=== PATIENT | male | born 1950 | race Two or more races ===

== ENCOUNTER 2018-03-26 06:10 | Inpatient (IN) | payer MEDICAID, MEDICARE ==
[~2018-03-26] VITALS: Ht 170.2 cm; Wt 115.0 kg
[~2018-03-26 06:10] MED LIST: AMLO5TAB13 PO; LOSA100T25 PO; PRAV20TA3 PO
[2018-03-26] MEDS ORDERED: CELECOXIB 100 MG CAP ONE (06:46)
[2018-03-26] MEDS ORDERED: ACETAMINOPHEN IV 100 ML IV ONE (06:47)
[2018-03-26] MEDS ORDERED: PREGABALIN CAPSULE 75 MG CAP ONE (06:47)
[2018-03-26] MEDS ORDERED: ceFAZolin 1GM/50ML 100 ML IV ONE (06:47)
[2018-03-26] MEDS ORDERED: TRANEXAMIC ACID 20 ML ONE (07:01)
[2018-03-26] MEDS ORDERED: BUPIVACAINE W/ EPINEPH 0.25% INJ 50ML MDV ONE (07:02)
[2018-03-26] MEDS ORDERED: VANCOMYCIN HCL 1000 MG VL ONE (07:02)
[2018-03-26] MEDS ORDERED: KETOROLAC TROMETH 30 MG/ML 1ML VIAL ONE (07:03)
[2018-03-26] MEDS ORDERED: MORPHINE SULF(PF) 0.5MG/ML 10ML VIAL ONE ×2 (07:05→07:32)
[2018-03-26] MEDS ORDERED: PHENYLEPHRINE HCL 10 MG/ML VL IV ONE (07:18)
[2018-03-26] MEDS ORDERED: TETRACAINE 1% INJ 2 ML VIAL IJ ONE (07:23)
[2018-03-26] MEDS ORDERED: fentaNYL CITRATE 100 MCG/2 ML VL ONE (07:32)
[2018-03-26] MEDS ORDERED: MIDAZOLAM HCL 1MG/1ML-2 ML VIAL ONE ×3 (07:32→10:55)
[2018-03-26] MEDS ORDERED: MIDAZOLAM HCL 1MG/1ML-2 ML VIAL IV PRN (08:30)
[2018-03-26] MEDS ORDERED: KETOROLAC TROMETH 30 MG/ML 1ML VIAL IV ONE (08:30)
[2018-03-26] MEDS ORDERED: NALBUPHINE HCL 10 MG/1ml INJECTION SUBCUT ONE (08:30)
[2018-03-26] MEDS ORDERED: diphenhdrAMINE HCL 50 MG/1 ML VL IV PRN (08:30)
[2018-03-26] MEDS ORDERED: NALOXONE HCL 0.4 MG/ML VIAL IV PRN (08:30)
[2018-03-26] MEDS ORDERED: DEXAMETHASONE SOD PHOS 10MG/1ML VIAL INJ IV PRN (08:30)
[2018-03-26] MEDS ORDERED: HYDROmorphone HCL 2 MG/ML VL IV PRN ×2 (08:30→10:45)
[2018-03-26] MEDS ORDERED: hydrALAZINE HCL 20 MG/ML VL IV PRN (08:30)
[2018-03-26] MEDS ORDERED: MORPHINE SULFATE 4 MG/ML SYR/VIAL IV PRN (08:30)
[2018-03-26] MEDS ORDERED: ONDANSETRON HCL 4 MG/2 ML VIAL IV ONE (08:30)
[2018-03-26] MEDS ORDERED: LABETALOL HCL 5 MG/ML 4ML SYRINGE IV PRN (08:30)
[2018-03-26] MEDS ORDERED: ePHEDrine SULFATE 50 MG/ML AMP IV PRN (08:30)
[2018-03-26] MEDS ORDERED: DEXAMETHASONE SOD PHOS 10MG/1ML VIAL INJ ONE (08:31)
[2018-03-26] MEDS ORDERED: PROPOFOL 10 MG/ML 20 ML IV ONE (08:31)
[2018-03-26] MEDS ORDERED: MORPHINE SULFATE 4 MG/ML SYR/VIAL IV ONE (10:00)
[2018-03-26] MEDS: LACTATED RINGER'S 1,000 ML IV SCH (10:29)
[2018-03-26] MEDS ORDERED: MORPHINE SULF INJ 2 MG/ML SYRINGE 1ML IV PRN (10:45)
[2018-03-26] MEDS ORDERED: ONDANSETRON HCL 4 MG/2 ML VIAL IV PRN (10:45)
[2018-03-26] MEDS ORDERED: NITROGLYCERIN 0.4 MG SL TAB SL PRN (10:45)
[2018-03-26] MEDS ORDERED: OXYCODONE W/ ACETAMINOPHEN 5/325MG TABLET PO PRN ×2 (10:45)
[2018-03-26] MEDS ORDERED: ACETAMINOPHEN 325 MG TAB PO PRN (10:45)
[2018-03-26] MEDS ORDERED: BISACODYL 5 MG EC TAB PO PRN (10:45)
[2018-03-26] MEDS ORDERED: traMADol HCL 50 MG TAB PO PRN (10:45)
[2018-03-26] MEDS ORDERED: ROPIVACAINE 0.5% (5MG/ML) 20ML AMPULE IJ ONE (10:56)
[2018-03-26] MEDS ORDERED: LIDOCAINE W/ EPINEPHRINE 2% INJ 20ML VIAL ONE (10:56)
[2018-03-26] MEDS ORDERED: ceFAZolin 1GM 2 GM in D5W 5% 100 ML IV SCH (15:00)
[2018-03-26 15:05] VITALS: BP 125/72
[2018-03-26] MEDS ORDERED: PANTOPRAZOLE 40 MG/10 ML VIAL IV ONE (17:02)
[2018-03-26 17:03] VITALS: BP 125/72
[2018-03-26] MEDS: ceFAZolin 1GM 2 GM in D5W 5% 100 ML IV SCH (18:11)
[2018-03-26] MEDS: oxyCODONE ER 10 MG TAB PO SCH (21:24)
[2018-03-26] MEDS: DOCUSATE SOD 100 MG CAP PO SCH (21:24)
[2018-03-26 22:00] VITALS: BP 125/79
[2018-03-27] MEDS: ceFAZolin 1GM 2 GM in D5W 5% 100 ML IV SCH ×2 (01:32→09:29)
[2018-03-27] MEDS: LACTATED RINGER'S 1,000 ML IV SCH ×3 (02:28→17:07)
[2018-03-27 05:00] VITALS: BP 119/79
[2018-03-27 09:00] VITALS: BP 139/71
[2018-03-27] MEDS: oxyCODONE ER 10 MG TAB PO SCH ×2 (09:30→21:58)
[2018-03-27] MEDS: LOSARTAN POTASSIUM 50 MG TAB PO SCH (09:30)
[2018-03-27] MEDS: amLODIPine BESYLATE 5 MG TAB PO SCH (09:31)
[2018-03-27] MEDS: DOCUSATE SOD 100 MG CAP PO SCH ×2 (09:31→21:54)
[2018-03-27] MEDS: ENOXAPARIN SOD 40 MG/0.4 ML SYRINGE SC SCH (09:31)
[2018-03-27] MEDS ORDERED: PATIENTS OWN MEDICATION (Losartan Potassium & Hydrochlo (Hyzaar) 1 TAB) PO SCH (10:00)
[2018-03-27] MEDS ORDERED: HCTZ 25 MG TAB PO SCH (10:00)
[2018-03-27 13:00] VITALS: BP 134/77
[2018-03-27] MEDS ORDERED: hydrALAZINE HCL 20 MG/ML VL IV PRN (16:00)
[2018-03-27 16:29] LABS: Alanine Aminotransferase 23 U/L (16-61); Albumin 3.2 g/dL (3.4-5.0); Alkaline Phosphatase 61 U/L (45-117); Aspartate Aminotransferase 17 U/L (15-37); Bilirubin, Direct < 0.1 mg/dL (0-0.2); Bilirubin, Total 0.4 mg/dL (0.2-1.0); Total Protein 6.7 g/dL (6.4-8.2)
[2018-03-27 17:00] VITALS: BP 140/74
[2018-03-27] MEDS: KETOROLAC TROMETH 30 MG/ML 1ML VIAL IV PRN (17:07)
[2018-03-27] MEDS: PRAVASTATIN SODIUM 20 MG TAB PO SCH (21:58)
[2018-03-27 22:00] VITALS: BP 147/82
[2018-03-28] MEDS: LACTATED RINGER'S 1,000 ML IV SCH ×3 (02:34→22:18)
[2018-03-28 05:00] VITALS: BP 144/76
[2018-03-28 06:18] LABS: Basophils # (auto) 0 uL; Basophils % (auto) 0.1 % (0.0-2.0); Eosinophils # (auto) 0 uL; Eosinophils % (auto) 0.2 % (0.0-7.0); Hematocrit 37.5 % (41.0-53.0); Hemoglobin 12.9 g/dL (13.5-17.5); Lymphocytes # (auto) 2.3 uL; Lymphocytes % (auto) 22.5 % (10.0-50.0); Mean Corpuscular Hgb Conc. 34.5 g/dL (32.0-36.0); Mean Corpuscular Volume 89.7 fL (80.0-100.0); Monocytes # (auto) 1.1 uL; Monocytes % (auto) 10.4 % (0.0-12.0); Neutrophils # (auto) 6.8 uL; Neutrophils % (auto) 66.8 % (37.0-80.0); Nucleated Red Blood Cells % 0.1 %; Platelet Count (auto) 175 10^3/uL (140-450); Red Blood Cells 4.18 10^6/uL (4.5-5.90); Red Cell Distribution Width 14.1 % (11.8-14.3); White Blood Cell 10.2 10^3/uL (4.4-10.8)
[2018-03-28 06:28] LABS: INR 0.93 (0.9-1.15); Partial Thromboplastin Time 25.3 sec (23.78-33.04)
[2018-03-28 06:29] LABS: Magnesium 2.2 mg/dL (1.6-2.6); Potassium 3.6 mmol/L (3.5-5.1)
[2018-03-28 06:31] LABS: BUN/Creatinine Ratio 27.2
[2018-03-28 08:00] VITALS: BP 153/78
[2018-03-28 08:34] VITALS: BP 153/78
[2018-03-28] MEDS: LOSARTAN POTASSIUM 50 MG TAB PO SCH (09:53)
[2018-03-28] MEDS: DOCUSATE SOD 100 MG CAP PO SCH ×2 (09:53→21:24)
[2018-03-28] MEDS: oxyCODONE ER 10 MG TAB PO SCH ×2 (09:54→21:25)
[2018-03-28] MEDS: amLODIPine BESYLATE 5 MG TAB PO SCH (09:54)
[2018-03-28] MEDS: ENOXAPARIN SOD 40 MG/0.4 ML SYRINGE SC SCH (09:55)
[2018-03-28] MEDS: KETOROLAC TROMETH 30 MG/ML 1ML VIAL IV PRN (12:27)
[2018-03-28 12:59] VITALS: BP 153/81
[2018-03-28 15:17] LABS: Basophils # (auto) 0 uL; Basophils % (auto) 0.3 % (0.0-2.0); Eosinophils # (auto) 0.1 uL; Eosinophils % (auto) 0.7 % (0.0-7.0); Hematocrit 38.7 % (41.0-53.0); Hemoglobin 13.1 g/dL (13.5-17.5); Lymphocytes # (auto) 2.3 uL; Mean Corpuscular Hemoglobin 30.4 pg (28.0-32.0); Mean Corpuscular Hgb Conc. 33.7 g/dL (32.0-36.0); Mean Corpuscular Volume 90.2 fL (80.0-100.0); Monocytes # (auto) 1.1 uL; Monocytes % (auto) 11.4 % (0.0-12.0); Neutrophils % (auto) 63.6 % (37.0-80.0); Nucleated Red Blood Cells % 0.1 %; Platelet Count (auto) 185 10^3/uL (140-450); Red Blood Cells 4.29 10^6/uL (4.5-5.90); White Blood Cell 9.5 10^3/uL (4.4-10.8)
[2018-03-28 17:00] VITALS: BP 158/85
[2018-03-28] MEDS: PRAVASTATIN SODIUM 20 MG TAB PO SCH (21:24)
[2018-03-28 22:00] VITALS: BP 149/88
[2018-03-29 05:00] VITALS: BP 144/85
[2018-03-29 07:35] LABS: Basophils # (auto) 0 uL; Basophils % (auto) 0.3 % (0.0-2.0); Eosinophils # (auto) 0.1 uL; Hematocrit 38.2 % (41.0-53.0); Hemoglobin 13.2 g/dL (13.5-17.5); Lymphocytes # (auto) 2.5 uL; Lymphocytes % (auto) 28.4 % (10.0-50.0); Mean Corpuscular Hemoglobin 31.1 pg (28.0-32.0); Mean Corpuscular Hgb Conc. 34.7 g/dL (32.0-36.0); Mean Corpuscular Volume 89.8 fL (80.0-100.0); Monocytes # (auto) 1.1 uL; Monocytes % (auto) 12.9 % (0.0-12.0); Neutrophils % (auto) 57.4 % (37.0-80.0); Nucleated Red Blood Cells % 0.1 %; Platelet Count (auto) 188 10^3/uL (140-450); Red Blood Cells 4.26 10^6/uL (4.5-5.90); Red Cell Distribution Width 14.3 % (11.8-14.3); White Blood Cell 8.7 10^3/uL (4.4-10.8)
[2018-03-29 07:46] LABS: BUN/Creatinine Ratio 19.8; Calcium 8.1 mg/dL (8.5-10.1); Potassium 3.5 mmol/L (3.5-5.1)
[2018-03-29 08:15] VITALS: BP 143/74
[2018-03-29] MEDS: LACTATED RINGER'S 1,000 ML IV SCH (08:29)
[2018-03-29 09:00] VITALS: BP 143/74
[2018-03-29] MEDS: LOSARTAN POTASSIUM 50 MG TAB PO SCH (10:19)
[2018-03-29] MEDS: oxyCODONE ER 10 MG TAB PO SCH (10:20)
[2018-03-29] MEDS: amLODIPine BESYLATE 5 MG TAB PO SCH (10:20)
[2018-03-29] MEDS: DOCUSATE SOD 100 MG CAP PO SCH (10:21)
[2018-03-29] MEDS: ENOXAPARIN SOD 40 MG/0.4 ML SYRINGE SC SCH (10:21)
[2018-03-29 11:39] VITALS: BP 161/67
[2018-03-29 12:33] VITALS: BP 133/74
== END 2018-03-29 12:30 | disposition home health service (06) | DRG 470 ==
LOC: SUR 06:10 → WEST WING 06:11 → UNDODISIN 15:20
PROVIDERS: ADMIT Orthopaedic Surgery Adult Reconstructive Orthopaedic Surgery; ATTEND Orthopaedic Surgery Adult Reconstructive Orthopaedic Surgery
PROC: 0SRD0J9 Replacement of Left Knee Joint with Synthetic Substitute, Cemented, Open Approach (ICD-10-PCS; principal; 2018-03-26 07:18)
DX: M17.12 Unilateral primary osteoarthritis, left knee (principal); I10 Essential (primary) hypertension; E78.5 Hyperlipidemia, unspecified; M85.662 Other cyst of bone, left lower leg; Z82.49 Family history of ischemic heart disease and other diseases of the circulatory system; E66.9 Obesity, unspecified; G47.33 Obstructive sleep apnea (adult) (pediatric); Z68.39 Body mass index [BMI] 39.0-39.9, adult; Z79.899 Other long term (current) drug therapy; Z96.651 Presence of right artificial knee joint
CPT/HCPCS: 36415; 73562; 80048; 80076; 83735; 85025; 85610; 85730; 86850; 86870; 86900; 86901; 97116; 97163; A6257; C1713; C9113; J0131; J0690; J1100; J1885; J2250; J2704; J7060